=== PATIENT | female | born 2000 | race Caucasian/White ===

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

== ENCOUNTER 2022-07-29 03:03 | Emergency (ER) | payer BC, OTHER ==
[~2022-07-29] VITALS: Ht 157.5 cm; Wt 75.3 kg
--- NOTE | 2022-07-29 03:21 | NUR ---
PT [facility] AMBULATORY. ABLE TO MAKE NEEDS KNOWN. C/O SORE THROAT AND FEVER. TEMP CHECKED 98.6F ORAL. PT DID NOT TAKE ANY MEDICATIONS FOR FEVER FROM HOME
--- NOTE | 2022-07-29 03:32 | NUR ---
COVID ANTIGEN COLLECTED AND SENT TO LAB
[2022-07-29 04:14] LABS: BASOPHILS % (AUTO) 0.4 % (0.0-2.0); HEMATOCRIT 38 % (33-45); LYMPHOCYTES # (AUTO) 0.9 K/uL (0.8-4.8); LYMPHOCYTES % (AUTO) 12.5 % (20.0-44.0); MEAN CORPUSCULAR HGB CONC 32 g/dl (31.0-36.0); MEAN CORPUSCULAR VOLUME 75 fL (82-100); MONOCYTES # (AUTO) 0.4 K/uL (0.1-1.30); MONOCYTES % (AUTO) 6.4 % (2.0-12.0); NEUTROPHILS # (AUTO) 5.6 K/uL (1.8-8.9); NEUTROPHILS % (AUTO) 80.7 % (43.0-81.0); PLATELET COUNT (AUTO) 243 K/uL (150-450); RED BLOOD CELL COUNT(AUTO) 5.05 MIL/uL (4.0-5.2); WHITE BLOOD COUNT (AUTO) 6.9 K/uL (4.3-11.0)
[2022-07-29 04:28] LABS: CALCIUM, SERUM 9.4 mg/dL (8.5-10.1); CREATININE 0.6 mg/dL (0.6-1.3)
[2022-07-29 05:11] VITALS: BP 117/78
--- NOTE | 2022-07-29 05:11 | NUR ---
Patient discharged to home in stable condition. Written and verbal after care instructions given. Patient verbalizes understanding of instruction.
== END 2022-07-29 05:12 | disposition home or self-care (01) ==
LOC: ER 03:05
DX: B34.9 Viral infection, unspecified (principal); Z20.822 Contact with and (suspected) exposure to COVID-19; Z87.442 Personal history of urinary calculi
CPT/HCPCS: 99284; 71045; 87426; 85025; 80048; 36415; C9803